=== PATIENT | male | born 1985 | race Caucasian/White ===

== ENCOUNTER 2016-12-01 14:00 | Emergency (ER) | payer OTHER, BC ==
[2016-12-01 14:23] VITALS: BMI 29.9
[2016-12-01 14:24] VITALS: TEMP 98.5
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
[2016-12-01 18:10] VITALS: BP 147/74; PULSE 99
== END 2016-12-01 18:08 | disposition home or self-care (01) ==
LOC: ED 14:00
DX: S43.401A Unspecified sprain of right shoulder joint, initial encounter (principal); S73.102A Unspecified sprain of left hip, initial encounter; V49.40XA Driver injured in collision with unspecified motor vehicles in traffic accident, initial encounter; Y93.9 Activity, unspecified; Y92.410 Unspecified street and highway as the place of occurrence of the external cause
CPT/HCPCS: 70450; 99283